=== PATIENT | male | born 1950 | race Caucasian/White ===

== ENCOUNTER 2016-09-07 00:40 | Observation (INO) | payer MEDICAID, MEDICARE, OTHER ==
[~2016-09-07] VITALS: Ht 167.6 cm; Wt 87.0 kg
[~2016-09-07 00:40] MED LIST: ALPR-138 PO; BACT2OIN TOP; ENAL2.5 PO; GLYBPOW XX; LORT10TA PO; PERC7.5T3; PREG20SO PO; ROSU5 PO; SOMA250T OR; ZOVI800T13 PO
[2016-09-07 00:44] VITALS: BP 153/78; PULSE 83; RESP 18; TEMP 98.5; O2SAT 97
[2016-09-07] MEDS ORDERED: GLIP10TA6 PO (00:59)
[2016-09-07] MEDS ORDERED: HYDR-3583 PO (00:59)
[2016-09-07] MEDS ORDERED: PERC10TA27 PO (00:59)
[2016-09-07] MEDS ORDERED: PRAV10TA PO (00:59)
[2016-09-07] MEDS ORDERED: ENAL10TA PO (00:59)
[2016-09-07] MEDS ORDERED: SOMA350T PO (00:59)
[2016-09-07] MEDS ORDERED: SODIUM CHLORIDE 0.9% FLUSH 10 ML FLUSH IVF PRN (01:45)
--- NOTE | 2016-09-07 02:21 | RADRPT ---
EXAM DATE/TIME: 09/07/2016 01:43 [facility] COMPARISON: No previous studies available for comparison. INDICATIONS : Chest pain. MEDICAL HISTORY : None. SURGICAL HISTORY : CABG. ENCOUNTER: Initial ACUITY: 1 day PAIN SCORE: 5/10 LOCATION: Bilateral chest FINDINGS: A single view of the chest demonstrates the lungs to be symmetrically aerated without evidence of mas s, infiltrate or effusion. The cardiomediastinal contours are unremarkable. Osseous structures are intact. Median sternotomy wires. CONCLUSION: No acute disease. Charles Savage Jr., MD on September 07, 2016 at 2:19 Board Certified Radiologist. This report was verified electronically.
[2016-09-07 02:22] LABS: BASOPHIL # 0.1 TH/MM3 (0-0.2); BASOPHIL % 0.5 % (0.0-2.0); EOSINOPHIL % 0.1 % (0.0-4.0); HEMO FLAGS DIFF FINAL; LYMPH % 13.6 % (9.0-44.0); LYMPHOCYTE # 1.7 TH/MM3 (1.0-4.8); MEAN CELL VOLUME 88.7 FL (80.0-100.0); MEAN CORPUSCULAR HEMOGLOBIN 30.4 PG (27.0-34.0); MEAN CORPUSCULAR HGB CONC 34.3 % (32.0-36.0); NEUT % 78.8 % (16.0-70.0); PLATELET COUNT 200 TH/MM3 (150-450); RED BLOOD COUNT 4.28 MIL/MM3 (4.50-5.90); RED CELL DISTRIBUTION WIDTH 12.8 % (11.6-17.2); WHITE BLOOD COUNT 12.7 TH/MM3 (4.0-11.0)
[2016-09-07 02:23] LABS: BLOOD, URINE SMALL (NEG); GLUCOSE,URINE TRACE mg/dL (NEG); KETONE, URINE 10 mg/dL (NEG); MUCUS URINE FEW /lpf (OCC); NITRITE,URINE NEG (NEG); PH, URINE 5.5 (5.0-8.5); URINE COLOR YELLOW (YELLW/STRAW)
[2016-09-07 02:25] LABS: COMMENT (UR) CULT NOT INDICATED; CULTURE IF INDICATED CULT NOT INDICATED
[2016-09-07 02:29] LABS: AMPHETAMINE, URINE NEG (NEG); BARBITURATES, URINE NEG (NEG); COCAINE, URINE NEG (NEG)
[2016-09-07 02:35] LABS: APTT (PATIENT) 27.1 SEC (24.3-30.1); PROTHROMBIN TIME - PATIENT 10.9 SEC (9.8-11.6)
[2016-09-07 02:49] LABS: ALT (GPT) 20 U/L (12-78); ANION GAP 11 MEQ/L (5-15); AST (GOT) 25 U/L (15-37); BICARBONATE 26.3 MEQ/L (21.0-32.0); BLOOD UREA NITROGEN 17 MG/DL (7-18); CHLORIDE 105 MEQ/L (98-107); GLOMERULAR FILTRATION RATE 58 ML/MIN (>89); POTASSIUM 3.8 MEQ/L (3.5-5.1); SODIUM (NA) 142 MEQ/L (136-145)
[2016-09-07 02:53] LABS: ALKALINE PHOSPHATASE 80 U/L (45-117); TOTAL BILIRUBIN ADULT 0.8 MG/DL (0.2-1.0)
--- NOTE | 2016-09-07 03:09 | RADRPT ---
EXAM DATE/TIME: 09/07/2016 02:52 [facility] COMPARISON: No previous studies available for comparison. INDICATIONS : Dizziness/ Altered mental status. RADIATION DOSE: 47.03 CTDIvol (mGy) MEDICAL HISTORY : Cardiovascular disease. Skin cancer SURGICAL HISTORY : Aortic valve replacement ENCOUNTER: Initial ACUITY: 1 day PAIN SCALE: 4/10 LOCATION: cranial TECHNIQUE: Multiple contiguous axial images were obtained of the head. Using automated exposure control and adj ustment of the mA and/or kV according to patient size, radiation dose was kept as low as reasonably a chievable to obtain optimal diagnostic quality images. FINDINGS: CEREBRUM: There is an area of encephalomalacia involving the right occipital lobe. Small chronic lacunar infarc tion involving the head of caudate on the right. The ventricles are normal for age. No evidence of m idline shift, mass lesion, hemorrhage or acute infarction. No extra-axial fluid collections are seen . POSTERIOR FOSSA: The cerebellum and brainstem are intact. The 4th ventricle is midline. The cerebellopontine angle i s unremarkable. EXTRACRANIAL: The visualized portion of the orbits is intact. SKULL: The calvaria is intact. No evidence of skull fracture. CONCLUSION: 1. No acute intracranial abnormality. 2. Encephalomalacia within the right occipital lobe. Charles Savage Jr., MD on September 07, 2016 at 3:07 Board Certified Radiologist. This report was verified electronically.
--- NOTE | 2016-09-07 04:09 | PD ---
HPI Chief Complaint: Syncope/Near-Syncope Time Seen by Provider: 01:23 Travel History International Travel<30 days: No Contact w/Intl Traveler<30days: No Traveled to known affect area: No History of Present Illness HPI Patient is a 65 year old male who comes in after he was sleeping on the floor and could not get up. Per patient, he has terrible insomnia and can go days without sleeping. He says that he hasn't slept in a few days and tonight lowered himself to the ground to sleep. He says that he was sleeping very deeply and when he awoke, he was confused and did not know where he was for a few minutes. He was unable to get himself up from the ground. His brother was worried about him and called 02-03-. He denies falling or injuring himself. He says he is in his normal state of health. He has chronic pain and takes Soma, Lortab, Percocet and Xanax. He denies chest pain, SOB, headache, fever. PFSH Past Medical History Cancer: Yes (SKIN) High Cholesterol: Yes Cerebrovascular Accident: Yes Diabetes: Yes Patient Takes Glucophage: No Hypertension: Yes Tetanus Vaccination: < 5 Years Influenza Vaccination: No Past Surgical History Valve Replacement: Yes (AORTIC) Other Surgery: Yes (SKIN CA) Social History Alcohol Use: No Tobacco Use: No Substance Use: No Allergies-Medications (Allergen,Severity, Reaction): Coded Allergies: No Known Allergies (Verified , 09/07/16) Reported Meds & Prescriptions Reported Meds & Active Scripts Active Reported Pravastatin 10 Mg Tab 10 Mg PO DAILY Enalapril (Enalapril Maleate) 10 Mg Tab 10 Mg PO DAILY Glipizide 10 Mg Tab 10 Mg PO DAILY Take 30 minutes before a meal Percocet (Oxycodone-Acetaminophen) 10-325 mg Tab 1 Tab PO DAILY PRN Hydrocodone-Acetaminophen 10-325 mg Tab 1 Tab PO Q4H PRN Soma (Carisoprodol) 350 Mg Tab 350 Mg PO QID PRN Review of Systems Except as stated in HPI: all other systems reviewed are Neg General / Constitutional: No: Fever, Chills Eyes: No: Blurred Vision HENT: No: Headaches Cardiovascular: No: Chest Pain or Discomfort Respiratory: No: Shortness of Breath Gastrointestinal: No: Nausea, Vomiting Genitourinary: No: Dysuria Musculoskeletal: Positive: Pain Skin: No Rash, No Change in Pigmentation Physical Exam Narrative GENERAL: Awake and alert, in no acute distress. SKIN: Focused skin assessment warm/dry. Abrasion to the right forearm. HEAD: Atraumatic. Normocephalic. EYES: Pupils equal and round. No scleral icterus. Extraocular movements intact. ENT: Mucous membranes pink and moist. NECK: Trachea midline. No JVD. CARDIOVASCULAR: Regular rate and rhythm. No murmur appreciated. RESPIRATORY: No accessory muscle use. Clear to auscultation. Breath sounds equal bilaterally. GASTROINTESTINAL: Abdomen soft, non-tender, nondistended. MUSCULOSKELETAL: No obvious deformities. No clubbing. No cyanosis. No edema. NEUROLOGICAL: Awake and alert. No obvious cranial nerve deficits. Motor grossly within normal limits. Normal speech. PSYCHIATRIC: Appropriate mood and affect; insight and judgment normal. Data Data Last Documented VS Vital Signs Date Time Temp Pulse Resp B/P Pulse Ox O2 Delivery O2 Flow Rate FiO2 09/07/16 00:49 18 98 Room Air 09/07/16 00:44 98.5 83 153/78 Orders Electrocardiogram (09/07/16 01:37) Complete Blood Count With Diff (09/07/16 01:37) Comprehensive Metabolic Panel (09/07/16 01:37) Troponin I (09/07/16 01:37) Act Partial Throm Time (Ptt) (09/07/16 01:37) Prothrombin Time / Inr (Pt) (09/07/16 01:37) Urinalysis - C+S If Indicated (09/07/16 01:37) Ua Includes Microscopic (09/07/16 01:37) Chest, Single Ap (09/07/16 01:37) Ct Brain W/O Iv Contrast(Rout) (09/07/16 01:37) Ecg Monitoring (09/07/16 01:37) Iv Access Insert/Monitor (09/07/16 01:37) Oximetry (09/07/16 01:37) Sodium Chloride 0.9% Flush (Ns Flush) (09/07/16 01:45) Drug Screen, Random Urine (09/07/16 01:37) Admit Order (Ed Use Only) (09/07/16 ) Diet 1800 Ada Cons Carb (09/07/16 Breakfast) Diet Heart Healthy (09/07/16 Breakfast) ^ Blood Glucose Goal (Criteria (09/07/16 04:28) ^ Hypoglycemia 51 - 69 Mg/Dl (09/07/16 04:28) ^ Hypoglycemia 50 Mg/Dl Or < (09/07/16 04:28) ^ Notify Dr: Other (09/07/16 04:28) Dextrose 50% In Samy (Vial) Inj (D50w (Vi (09/07/16 04:30) Glucagon Inj (Glucagon Inj) (09/07/16 04:30) Insulin Aspart Supplemtl Scale (Novolog (09/07/16 07:00) Vital Signs (Adult) PAPITO.Q4H (09/07/16 04:28) Neuro Checks . ORDERED (09/07/16 04:28) Scd Bilateral/Knee High PAPITO.QSHIFT (09/07/16 04:28) Consult Pt Eval & Treat (09/07/16 04:28) Ondansetron Inj (Zofran Inj) (09/07/16 04:45) Labs Laboratory Tests Test 09/07/16 01:53 White Blood Count 12.7 TH/MM3 Red Blood Count 4.28 MIL/MM3 Hemoglobin 13.0 GM/DL Hematocrit 38.0 % Mean Corpuscular Volume 88.7 FL Mean Corpuscular Hemoglobin 30.4 PG Mean Corpuscular Hemoglobin 34.3 % Concent Red Cell Distribution Width 12.8 % Platelet Count 200 TH/MM3 Mean Platelet Volume 9.7 FL Neutrophils (%) (Auto) 78.8 % Lymphocytes (%) (Auto) 13.6 % Monocytes (%) (Auto) 7.0 % Eosinophils (%) (Auto) 0.1 % Basophils (%) (Auto) 0.5 % Neutrophils # (Auto) 10.0 TH/MM3 Lymphocytes # (Auto) 1.7 TH/MM3 Monocytes # (Auto) 0.9 TH/MM3 Eosinophils # (Auto) 0.0 TH/MM3 Basophils # (Auto) 0.1 TH/MM3 CBC Comment DIFF FINAL Differential Comment Prothrombin Time 10.9 SEC Prothromb Time International 1.0 RATIO Ratio Activated Partial 27.1 SEC Thromboplast Time Urine Color YELLOW Urine Turbidity CLEAR Urine pH 5.5 Urine Specific [place] 1.020 Urine Protein 100 mg/dL Urine Glucose (UA) TRACE mg/dL Urine Ketones 10 mg/dL Urine Occult Blood SMALL Urine Nitrite NEG Urine Bilirubin NEG Urine Urobilinogen LESS THAN 2.0 MG/DL Urine Leukocyte Esterase NEG Urine RBC LESS THAN 1 /hpf Urine WBC 1 /hpf Urine Mucus FEW /lpf Microscopic Urinalysis Comment CULT NOT INDICATED Sodium Level 142 MEQ/L Potassium Level 3.8 MEQ/L Chloride Level 105 MEQ/L Carbon Dioxide Level 26.3 MEQ/L Anion Gap 11 MEQ/L Blood Urea Nitrogen 17 MG/DL Creatinine 1.24 MG/DL Estimat Glomerular Filtration 58 ML/MIN Rate Random Glucose 206 MG/DL Calcium Level 9.2 MG/DL Total Bilirubin 0.8 MG/DL Aspartate Amino Transf 25 U/L (AST/SGOT) Alanine Aminotransferase 20 U/L (ALT/SGPT) Alkaline Phosphatase 80 U/L Troponin I LESS THAN 0.02 NG/ML Total Protein 7.9 GM/DL Albumin 4.4 GM/DL Urine Opiates Screen POS Urine Barbiturates Screen NEG Urine Amphetamines Screen NEG Urine Benzodiazepines Screen POS Urine Cocaine Screen NEG Urine Cannabinoids Screen NEG MDM Medical Decision Making Medical Screen Exam Complete: Yes Emergency Medical Condition: Yes Medical Record Reviewed: Yes Interpretation(s) ECG shows normal sinus rhythm at 85, no ST elevation or depression, normal intervals. Differential Diagnosis Syncope versus electrolyte abnormality versus rhabdomyolysis versus ACS Narrative Course Patient is a 65-year-old male who comes in by EMS after he was confused and unable to get himself off the ground. Exam shows some generalized weakness, he has difficulty getting himself up off the stretcher, however he says this is how he normally moves. There are no focal neurologic deficits. IV established , labs sent. Labs show an elevated white blood cell count of 12.7. Patient is no complaints of urinary symptoms or cough or cold. He has not had any fever or chills at home. Chest x-ray performed shows no acute abnormalities. CT head shows encephalomalacia of the occiput, no acute abnormalities. Tox screen is positive for opiates and benzodiazepines. Patient advised she takes a lot of sedating medications and should probably cut back. Patient is still having difficulty getting around. We'll place an observation for syncope versus ACS. Diagnosis Primary Impression: Altered mental status Qualified Code: R41.82 - Altered mental status, unspecified altered mental status type Additional Impression: Generalized weakness Admitting Information Admitting Physician Requests: Observation Belkis Lemos MD Sep 07, 2016 04:09
[2016-09-07] MEDS ORDERED: DEXTROSE 50% IN WATER 50 ML VIAL(D50) IV PUSH PRN (04:30)
[2016-09-07] MEDS ORDERED: GLUCAGON 1 MG/ML VIAL OTHER PRN (04:30)
[2016-09-07] MEDS ORDERED: ONDANSETRON HCL 4 MG/2 ML VIAL IV PUSH PRN (04:45)
[2016-09-07 05:22] VITALS: BP 130/64; PULSE 83; RESP 18; TEMP 98.1; O2SAT 94; O2SAT 95
[2016-09-07] MEDS ORDERED: INSULIN ASPART SUPPLEMENTAL SCALE SQ SCH (07:00)
[2016-09-07 08:42] VITALS: BP 123/60; PULSE 75; RESP 16; TEMP 97.9; O2SAT 95
[2016-09-07] MEDS ORDERED: PRAVASTATIN SOD 10 MG TAB PO SCH (09:00)
[2016-09-07] MEDS ORDERED: ENALAPRIL MALEATE 10 MG TAB PO SCH (09:00)
--- NOTE | 2016-09-07 09:10 | EKG ---
Date Performed: 09/07/2016 Time Performed: 00:54:29 PTAGE: 65 years EKG: Sinus rhythm POSSIBLE LEFT ATRIAL ENLARGEMENT BORDERLINE ECG INTERPRETATION BASED ON A DEFAULT AGE OF 38 YEARS NO PREVIOUS TRACING DOCTOR: Vincent Vieyra Interpretating Date/Time 09/07/2016 09:09:20
[2016-09-07] MEDS ORDERED: ACETAMINOPHEN/HYDROcodone 325 MG/10 MG TAB PO PRN (09:45)
--- NOTE | 2016-09-07 10:53 | HHI.HP ---
HPI Service [facility] Primary Care Physician Gordy Sales MD Admission Diagnosis syncope, AMS Diagnoses: Chief Complaint: Confusion, gait unsteadiness Travel History International Travel<30 Days: No Contact w/Intl Traveler <30 Da: No Traveled to Known Affected Are: No History of Present Illness 65-year-old male with past medical history of insomnia, HTN, HLD, DM, chronic back and hip pain who presented for altered mental status. The patient states that he was brought in by his brother who is concerned because he was confused. The patient states that this is a chronic issue that he's been dealing with. He states that he has chronic insomnia, and whenever he is unable to sleep for 3 or 4 days, the dreams that he has whenever he finally does get to sleep are vivid and he is very confused whenever he wakes up. He states that last night he hadn't slept for 3 or 4 days, was overcome with sleep, laid himself down on the floor and slept for 6 hours or so. When he woke up, his brother found him and he was confused, and so his brother called 911. The patient states that he has these episodes 2-3 times per year, denies anything different from previous episodes. He denies any symptoms prior to going to sleep such as chest pain, shortness of breath, sweats. He has chronic back and left hip pain, which causes some difficulty with ambulation for which he uses a cane. He follows with pain management as outpatient. He feels well at this time and is asking to go home. Review of Systems Except as stated in HPI: all other systems reviewed are Neg Past Family Social History Past Medical History Hypertension Hyperlipidemia Diabetes mellitus Chronic pain History of Hodgkin's disease Past Surgical History Bovine aortic valve replacement Hodgkin's disease for surgery on neck, shoulder, feet Skin cancer removal 6 Reported Medications Pravastatin 10 Mg Tab 10 Mg PO DAILY Enalapril (Enalapril Maleate) 10 Mg Tab 10 Mg PO DAILY Glipizide 10 Mg Tab 10 Mg PO DAILY Take 30 minutes before a meal Percocet (Oxycodone-Acetaminophen) 10-325 mg Tab 1 Tab PO DAILY PRN Hydrocodone-Acetaminophen 10-325 mg Tab 1 Tab PO Q4H PRN Soma (Carisoprodol) 350 Mg Tab 350 Mg PO QID PRN Allergies: Coded Allergies: No Known Allergies (Verified , 09/07/16) Active Ordered Medications Current Medications Medications (Trade) Dose Ordered Sig/Luna Route Start Time Stop Time Status Last Admin (NS Flush) 2 ml UNSCH PRN IVF 09/07/16 01:45 (D50w (Vial) Inj) 25 ml UNSCH PRN IV PUSH 09/07/16 04:30 (Glucagon Inj) 1 mg UNSCH PRN OTHER 09/07/16 04:30 (Zofran Inj) 4 mg Q8HR PRN IV PUSH 09/07/16 04:45 (Vasotec) 10 mg DAILY PO 09/07/16 09:00 09/07/16 09:38 (Pravachol) 10 mg DAILY PO 09/07/16 09:00 09/07/16 09:38 ([place] 10-325 Mg) 1 tab Q4H PRN PO 09/07/16 09:45 Family History Hypertension Mother of emphysema Father of lung cancer Social History Denies alcohol, tobacco, or drug use Physical Exam Vital Signs Vital Signs Date Time Temp Pulse Resp B/P Pulse Ox O2 Delivery O2 Flow Rate FiO2 09/07/16 08:42 97.9 75 16 123/60 95 09/07/16 05:22 98.1 83 18 130/64 94 Room Air 09/07/16 05:22 95 Room Air 09/07/16 00:49 18 98 Room Air 09/07/16 00:44 98.5 83 18 153/78 97 Physical Exam GENERAL: Well-developed well-nourished. In no acute distress. SKIN: Warm and dry. No lesions noted. HEENT: Normocephalic. Pupils equal and round. Mucous membranes pink and moist. CARDIOVASCULAR: Regular rate and rhythm. No murmur appreciated. RESPIRATORY: No accessory muscle use. Clear to auscultation. Breath sounds equal bilaterally. GASTROINTESTINAL: Abdomen soft, non-tender, nondistended. Bowel sounds x4. MUSCULOSKELETAL: No obvious deformities. No clubbing or cyanosis. No edema. Painful ROM left hip. NEUROLOGICAL: Awake and alert. No focal neurological deficits. Moves upper and lower extremities spontaneously. Normal speech. Strength 5/5, except for limited strength testing in left hip secondary to pain. PSYCHIATRIC: Appropriate mood and affect; insight and judgment normal. Laboratory Laboratory Tests Test 09/07/16 01:53 White Blood Count 12.7 Red Blood Count 4.28 Hemoglobin 13.0 Hematocrit 38.0 Mean Corpuscular Volume 88.7 Mean Corpuscular Hemoglobin 30.4 Mean Corpuscular Hemoglobin 34.3 Concent Red Cell Distribution Width 12.8 Platelet Count 200 Mean Platelet Volume 9.7 Neutrophils (%) (Auto) 78.8 Lymphocytes (%) (Auto) 13.6 Monocytes (%) (Auto) 7.0 Eosinophils (%) (Auto) 0.1 Basophils (%) (Auto) 0.5 Neutrophils # (Auto) 10.0 Lymphocytes # (Auto) 1.7 Monocytes # (Auto) 0.9 Eosinophils # (Auto) 0.0 Basophils # (Auto) 0.1 CBC Comment DIFF FINAL Differential Comment Prothrombin Time 10.9 Prothromb Time International 1.0 Ratio Activated Partial 27.1 Thromboplast Time Urine Color YELLOW Urine Turbidity CLEAR Urine pH 5.5 Urine Specific [place] 1.020 Urine Protein 100 Urine Glucose (UA) TRACE Urine Ketones 10 Urine Occult Blood SMALL Urine Nitrite NEG Urine Bilirubin NEG Urine Urobilinogen LESS THAN 2.0 Urine Leukocyte Esterase NEG Urine RBC LESS THAN 1 Urine WBC 1 Urine Mucus FEW Microscopic Urinalysis Comment CULT NOT INDICATED Sodium Level 142 Potassium Level 3.8 Chloride Level 105 Carbon Dioxide Level 26.3 Anion Gap 11 Blood Urea Nitrogen 17 Creatinine 1.24 Estimat Glomerular Filtration 58 Rate Random Glucose 206 Calcium Level 9.2 Total Bilirubin 0.8 Aspartate Amino Transf 25 (AST/SGOT) Alanine Aminotransferase 20 (ALT/SGPT) Alkaline Phosphatase 80 Troponin I LESS THAN 0.02 Total Protein 7.9 Albumin 4.4 Urine Opiates Screen POS Urine Barbiturates Screen NEG Urine Amphetamines Screen NEG Urine Benzodiazepines Screen POS Urine Cocaine Screen NEG Urine Cannabinoids Screen NEG Result Diagram: 09/07/16 0153 09/07/16 0153 Imaging Last Impressions Head CT 09/07/16 0137 Signed Impressions: Service Date/Time: Wednesday, September 07, 2016 02:52 - CONCLUSION: 1. No acute intracranial abnormality. 2. Encephalomalacia within the right occipital lobe. Charles Savage Jr., MD Chest X-Ray 4/5/17 0137 Signed Impressions: Service Date/Time: Wednesday, September 07, 2016 01:43 - CONCLUSION: No acute disease. Charles Savage Jr., MD Assessment and Plan Assessment and Plan 65-year-old male with past medical history of insomnia, HTN, HLD, DM, chronic back and hip pain who presented for altered mental status Acute encephalopathy: Suspect secondary to deep sleep after insomnia vs 2/2 to multiple sedating medications at home. Head CT with no acute intracranial abnormality, and encephalomalacia of the right occipital lobe. Toxicology positive for benzos and opiates. Caution with controlled medications; follow up with PCP and pain management. Left lower extremity weakness with gait unsteadiness: Secondary to chronic pain. Continue pain control cautiously. PT consulted, discussed with physical therapists, recommends outpatient PT, no other restrictions. Leukocytosis: WBC 12.7. Afebrile. Chest x-ray and UA clear. No further signs of infection. Diabetes mellitus: No signs of hypoglycemia. Continue home glipizide. HTN: Discussed with PT who performed orthostatics, not orthostatic. Controlled. Continue home enalapril. Hyperlipidemia: Chronic, stable. Continue statin. Disposition: Discharge home today in stable condition for outpatient follow-up with PCP and pain management. May need orthopedic referral. Outpatient PT recommended. Written by Ren Cary, acting as scribe for Dr. Timmons on 09/07/16 at 10:52. All or portions of this note were transcribed by scribe TOD Garg. I, Dr. Kulwinder Timmons personally performed the history, physical exam, and medical decision making; and confirmed the accuracy of the information in the transcribed note. Authenticated by Dr. Kulwinder Timmons on 09/07/16 at 23:06. Discussed Condition With Patient, RN, PT Ren Cary Sep 07, 2016 10:53 Alina Timmons DO Sep 07, 2016 23:06
== END 2016-09-07 11:58 | disposition home or self-care (01) ==
LOC: NEPC 00:40 → NEDA 04:32 → NEPGCP 06:33
PROVIDERS: ADMIT Hospitalist; ATTEND Hospitalist
DX: G93.40 Encephalopathy, unspecified (principal); I10 Essential (primary) hypertension; E78.5 Hyperlipidemia, unspecified; E11.9 Type 2 diabetes mellitus without complications; R26.81 Unsteadiness on feet; D72.829 Elevated white blood cell count, unspecified; R29.898 Other symptoms and signs involving the musculoskeletal system; G47.00 Insomnia, unspecified; M54.9 Dorsalgia, unspecified; M25.559 Pain in unspecified hip; G89.29 Other chronic pain; E78.00 Pure hypercholesterolemia, unspecified; Z85.71 Personal history of Hodgkin lymphoma; Z85.828 Personal history of other malignant neoplasm of skin; Z79.84 Long term (current) use of oral hypoglycemic drugs; Z95.1 Presence of aortocoronary bypass graft; Z95.2 Presence of prosthetic heart valve; Z86.73 Personal history of transient ischemic attack (TIA), and cerebral infarction without residual deficits
CPT/HCPCS: 70450; 71010; 80053; 80307; 81001; 84484; 85025; 85610; 85730; 93005; 97161; 99285; G0378; G8987; G8988; J1815